=== PATIENT | male | born 1945 | race Caucasian/White ===

== ENCOUNTER → 2021-07-09 | Outpatient (CLI) | payer MEDICARE | END | disposition home or self-care (01) | LOC: LAB SHORT 11:34 → LAB 11:34 | DX: K04.7 Periapical abscess without sinus (principal) | CPT/HCPCS: 87070; 87075; 87205 ==

== ENCOUNTER → 2025-05-10 | Outpatient (CLI) | payer MEDICARE ==
[~2025-05-10] MED LIST: ALBU90OI; FINA5; Lisinopril2.5 MG; METF500; PRAV20 PO; TAMS.4ER
[2025-05-10 13:57] LABS: Creatinine, Urine Random 97.7 mg/dL (27.00-270.00); Microalb/Creat Ratio UR, Rand 5.711 mg/g (0.000-30.000); Microalbumin, Random Urine 5.58 mg/L (0.000-20.000)
== END ==
LOC: LAB 12:36 → LAB SHORT 12:36
PROVIDERS: Family Medicine
DX: E11.21 Type 2 diabetes mellitus with diabetic nephropathy (principal); E11.22 Type 2 diabetes mellitus with diabetic chronic kidney disease; E11.51 Type 2 diabetes mellitus with diabetic peripheral angiopathy without gangrene; E11.59 Type 2 diabetes mellitus with other circulatory complications; E11.65 Type 2 diabetes mellitus with hyperglycemia; E11.69 Type 2 diabetes mellitus with other specified complication
CPT/HCPCS: 82043; 82570